=== PATIENT | female | born 1995 | race Caucasian/White ===

== ENCOUNTER 2021-12-07 22:51 | Emergency (ER) | payer OTHER, SELFPAY ==
[2021-12-08] MEDS ORDERED: LIDOCAINE 1% W/EPI 1:100,000 MDV 20 ML VIAL ONE (00:34)
[2021-12-08] MEDS ORDERED: TETANUS & DIPHTHERIA TOX,ADULT 0.5 ML VIAL ONE (00:35)
--- NOTE | 2021-12-08 02:19 | ER ---
Nurse's Notes [facility] Name: Celsa Villavicencio Age: 26 yrs Sex: Female : 1995 Arrival Date: 12/07/2021 Time: 22:53 Bed 3 Private MD: Diagnosis: Arm Laceration Left/ Open wound of forearm Presentation: 12/07 22:53 Chief complaint: Patient states: Multiple lacerations to left wrist and forearm. Pt ld1 reporting "sexual pleasure" activity when lacerations occurred at 2200 today. Coronavirus screen: At this time, the client does not indicate any symptoms associated with coronavirus-19. Ebola Screen: No symptoms or risks identified at this time. Complicating Factors: There are no complicating factors for this patient. Initial Sepsis Screen: Does the patient meet any 2 criteria? No. Patient's initial sepsis screen is negative. Does the patient have a suspected source of infection? No. Patient's initial sepsis screen is negative. Risk Assessment: Do you want to hurt yourself or someone else? Patient reports no desire to harm self or others. Onset of symptoms was December 07, 2021. 22:53 Method Of Arrival: Ambulatory ld1 22:53 Acuity: JANES 3 ld1 Triage Assessment: 22:56 General: Appears in no apparent distress. comfortable, Behavior is calm, cooperative, ld1 appropriate for age. Pain: Denies pain. EENT: No signs and/or symptoms were reported regarding the EENT system. Neuro: Level of Consciousness is awake, alert, obeys commands, Oriented to person, place, time, situation. Cardiovascular: Capillary refill < 3 seconds Patient's skin is warm and dry. Respiratory: Airway is patent Respiratory effort is even, unlabored. GI: Abdomen is flat, non-distended. : No signs and/or symptoms were reported regarding the genitourinary system. Injury Description: Laceration sustained to left arm. 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 - Social history:: Smoking status: Patient reports the use of cigarette tobacco products, smokes two packs cigarettes per day. Patient uses alcohol, on a daily basis. Screenin/27 02:05 Abuse screen: Denies threats or abuse. Nutritional screening: No deficits noted. vc1 Tuberculosis screening: No symptoms or risk factors identified. Fall Risk None identified. Assessment: 00:00 General: Appears in no apparent distress. comfortable, Behavior is calm, cooperative, vc1 appropriate for age. Pain: Complains of pain in left arm. Neuro: No deficits noted. Cardiovascular: No deficits noted. Musculoskeletal: No deficits noted. Range of motion: intact in all extremities. 00:00 Injury Description: Laceration sustained to left arm is clean, 0.5 to 2.5 cm long, vc1 bleeding moderately, multiple laceration down left arm. 01:00 Reassessment: No changes from previously documented assessment. Patient and/or family vc1 updated on plan of care and expected duration. Pain level reassessed. 02:00 Reassessment: No changes from previously documented assessment. Patient and/or family vc1 updated on plan of care and expected duration. Pain level reassessed. Vital Signs: 12/07 22:53 BP 138 / 114; Pulse 114; Resp 18; Temp 98.9; Pulse Ox 99% on R/A; Weight 71.67 kg; ld1 Height 5 ft. 3 in. (160.02 cm); Pain 0/10; 12/08 02:00 BP 126 / 96; Pulse 95; Resp 17; Pulse Ox 100% ; vc1 12/07 22:53 Body Mass Index 27.99 (71.67 kg, 160.02 cm) ld1 ED Course: 12/07 22:53 Patient arrived in ED. kz 22:56 Triage completed. ld1 22:56 Arm band placed on right wrist. ld1 23:47 Miriam Nielsen RN is Primary Nurse. vc1 23:56 Brian Rosado MD is Attending Physician. mh7 12/08 00:00 Patient has correct armband on for positive identification. Bed in low position. vc1 00:00 Wound care: to laceration located on left arm was cleaned with Betadine, Patient vc1 tolerated well. 02:05 Assist provider with laceration repair on left arm that was 2.5 cm. or less using vc1 sutures. Set up tray. Performed by Brian Rosado MD Dressed with Non stick pad with yuriy wrap Patient tolerated well. 02:36 Patient did not have IV access during this emergency room visit. 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 Exp: vc1 09/23/2023. Lot #: [id number]. } Route: IM; Site: left deltoid; 02:33 Follow up: Response: No adverse reaction vc1 01:47 Drug: Lidocaine-Epinephrine -1%: (1:100,000) 10 ml Volume: 20 ml; Route: Infiltration; vc1 02:32 Drug: KeFLEX (cephalexin) 500 mg Route: PO; vc1 02:33 Follow up: Response: Medication administered at discharge. vc1 Medication: 02:08 Vaccine Information Statement (VIS) provided today. Questions and/or concerns vc1 addressed. VIS edition date: December 08, 2021. Outcome: 02:18 Discharge ordered by . [facility] 02:36 Discharged to home ambulatory, with significant other. vc1 02:36 Condition: good 02:36 Discharge instructions given to patient, significant other, Instructed on discharge instructions, follow up and referral plans. wound care, Demonstrated understanding of instructions, follow-up care, medications, wound care, Prescriptions given X 1. 02:36 Patient left the ED. vc1 Signatures: Brian Rosado MD MD [facility] Prabha Licona RN RN 1 Miriam Nielsen RN RN 1 Allyson Robbins
--- NOTE | 2021-12-08 02:20 | EDPHYS ---
Physician Documentation [facility] Name: Celsa Villavicencio Age: 26 yrs Sex: Female : 1995 Arrival Date: 12/07/2021 Time: 22:53 Bed 3 Private MD: ED Physician Brian Rosado HPI: 12/08 00:26 This 26 yrs old Female presents to ER via Ambulatory with complaints of Laceration To mh7 Arm. 00:26 The patient has a laceration related to: sexual activity occurred at home, and there mh7 are no complicating factors. The injury was self inflicted. The laceration(s) is(are) located on the left forearm. Onset: The symptoms/episode began/occurred 2 hour(s) ago. Associated signs and symptoms: Pertinent negatives: deformity, dizziness, heavy bleeding, loss of consciousness, numbness distal to injury, suspected foreign body. 00:26 Patient's significant other in ED and verifies the history given by the patient.. 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 - Social history:: Smoking status: Patient reports the use of cigarette tobacco products, smokes two packs cigarettes per day. Patient uses alcohol, on a daily basis. ROS: 12/08 00:26 Constitutional: Negative for fever, chills, and weight loss, Eyes: Negative for injury, mh7 pain, redness, and discharge, ENT: Negative for injury, pain, and discharge, Neck: Negative for injury, pain, and swelling, Cardiovascular: Negative for chest pain, palpitations, and edema, Respiratory: Negative for shortness of breath, cough, wheezing, and pleuritic chest pain, Abdomen/GI: Negative for abdominal pain, nausea, vomiting, diarrhea, and constipation, Back: Negative for injury and pain, : Negative for injury, bleeding, discharge, and swelling, Neuro: Negative for headache, weakness, numbness, tingling, and seizure, Psych: Negative for depression, anxiety, suicide ideation, homicidal ideation, and hallucinations, Allergy/Immunology: Negative for hives, rash, and allergies, Endocrine: Negative for neck swelling, polydipsia, polyuria, polyphagia, and marked weight changes, Hematologic/Lymphatic: Negative for swollen nodes, abnormal bleeding, and unusual bruising. Exam: 00:26 Constitutional: This is a well developed, well nourished patient who is awake, alert, mh7 and in no acute distress. Head/Face: Normocephalic, atraumatic. Neuro: Awake and alert, GCS 15, oriented to person, place, time, and situation. Cranial nerves II-XII grossly intact. Motor strength 5/5 in all extremities. Sensory grossly intact. Cerebellar exam normal. Normal gait. Psych: Awake, alert, with orientation to person, place and time. Behavior, mood, and affect are within normal limits. 00:26 Eyes: Pupils equal round and reactive to light, extra-ocular motions intact. Lids and mh7 lashes normal. Conjunctiva and sclera are non-icteric and not injected. Cornea within normal limits. Periorbital areas with no swelling, redness, or edema. Neck: Trachea midline, no thyromegaly or masses palpated, and no cervical lymphadenopathy. Supple, full range of motion without nuchal rigidity, or vertebral point tenderness. No Meningismus. Chest/axilla: Normal chest wall appearance and motion. Nontender with no deformity. No lesions are appreciated. Cardiovascular: Regular rate and rhythm with a normal S1 and S2. No gallops, murmurs, or rubs. Normal PMI, no JVD. No pulse deficits. Respiratory: Lungs have equal breath sounds bilaterally, clear to auscultation and percussion. No rales, rhonchi or wheezes noted. No increased work of breathing, no retractions or nasal flaring. Abdomen/GI: Soft, non-tender, with normal bowel sounds. No distension or tympany. No guarding or rebound. No evidence of tenderness throughout. Back: No spinal tenderness. No costovertebral tenderness. Full range of motion. 00:26 Musculoskeletal/extremity: Extremities: noted in the left forearm: abrasion, mh7 laceration, ROM: intact in all extremities, Circulation is intact in all extremities. Sensation intact. Compartment Syndrome exam of affected extremity: is normal. no pain, no numbness, no tingling, no sensation deficit, no palor, no weak pulses, Joints: All joints appear normal with full range of motion. Tendon exam: specific tendon testing normal through active and passive range of motion 00:26 Skin: injury, abrasion(s), moderate sized abrasion noted, of the left forearm, laceration(s), the wound is approximately 2 cm(s), with a depth of 0.5 cm(s), of the left forearm, the second wound is approximately 2.5 cm(s), with a depth of 0.5 cm(s), of the left forearm, the third wound is approximately 2.5 cm(s), with a depth of 0.2 cm(s), of the left forearm, the fourth wound is approximately 1 cm(s), with a depth of 0.2 cm(s), of the left forearm, that can be described as clean, no foreign body, irregular, with mild bleeding. Vital Signs: 12/07 22:53 BP 138 / 114; Pulse 114; Resp 18; Temp 98.9; Pulse Ox 99% on R/A; Weight 71.67 kg; ld1 Height 5 ft. 3 in. (160.02 cm); Pain 0/10; 12/08 02:00 BP 126 / 96; Pulse 95; Resp 17; Pulse Ox 100% ; vc1 12/07 22:53 Body Mass Index 27.99 (71.67 kg, 160.02 cm) ld1 Laceration: 00:26 Wound Repair of 2.5cm ( 1.0in ) subcutaneous laceration to left forearm. Irregularly mh7 shaped.. Distal neuro/vascular/tendon intact. Anesthesia: Local anesthetic administered with 1 mls of 1% lidocaine w/ Epi. Wound prep: Extensive cleansing with betadine by nurse, Wound irrigation with saline by me, Wound explored extensively, Copious irrigation. Skin closed with 5 4-0 Prolene using simple sutures and sterile technique. Dressed with Bacitracin. Patient tolerated well. 00:26 Wound Repair of 2.0cm ( 0.8in ) subcutaneous laceration to left forearm. Irregularly mh7 shaped.. Distal neuro/vascular/tendon intact. Anesthesia: Local anesthetic administered with 1 mls of 1% lidocaine. Wound prep: Extensive cleansing with betadine by nurse, Wound irrigation with saline by me, Wound explored extensively, Copious irrigation. Skin closed with 4 4-0 Prolene using simple sutures and sterile technique. Dressed with Bacitracin, non-adherent dressing. Patient tolerated well. 00:26 Wound Repair of 2.5cm ( 1.0in ) subcutaneous laceration to left forearm. Irregularly mh7 shaped.. Distal neuro/vascular/tendon intact. Anesthesia: Local anesthetic administered with 1 mls of 1% lidocaine w/ Epi. Wound prep: Extensive cleansing with betadine by nurse, Wound irrigation with saline by me, Wound explored extensively, Copious irrigation. Skin closed with 5 4-0 Prolene using simple sutures and sterile technique. Dressed with Bacitracin, non-adherent dressing. Patient tolerated well. 00:26 Wound Repair of 1cm ( 0.4in ) subcutaneous laceration to left forearm. Irregularly mh7 shaped.. Distal neuro/vascular/tendon intact. Anesthesia: Local anesthetic administered with 1 mls of 1% lidocaine. Wound prep: Extensive cleansing with betadine by nurse, Wound irrigation with saline by me, Wound explored extensively, Copious irrigation. Skin closed with 1 4-0 Prolene using simple sutures and sterile technique. Dressed with Bacitracin, non-adherent dressing. Patient tolerated well. MDM: 02:17 Differential diagnosis: superficial laceration, tendon injury, vascular injury. Data [facility] reviewed: vital signs, nurses notes. Data interpreted: Pulse oximetry: on room air is 99 %. Interpretation: normal. Counseling: I had a detailed discussion with the patient and/or guardian regarding: the historical points, exam findings, and any diagnostic results supporting the discharge/admit diagnosis, the presence of at least one elevated blood pressure reading (>120/80) during this emergency department visit, the need for outpatient follow up, to return to the emergency department if symptoms worsen or persist or if there are any questions or concerns that arise at home. Response to treatment: the patient's symptoms have markedly improved after treatment. 02:18 Patient medically screened. 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 Exp: vc1 09/23/2023. Lot #: [id number]. } Route: IM; Site: left deltoid; 02:33 Follow up: Response: No adverse reaction vc1 01:47 Drug: Lidocaine-Epinephrine -1%: (1:100,000) 10 ml Volume: 20 ml; Route: Infiltration; vc1 02:32 Drug: KeFLEX (cephalexin) 500 mg Route: PO; vc1 02:33 Follow up: Response: Medication administered at discharge. vc1 Disposition Summary: 12/08/21 02:18 Discharge Ordered Location: Home [facility] Problem: new [facility] Symptoms: have improved [facility] Condition: Stable [facility] Diagnosis - Arm Laceration Left/ Open wound of forearm [facility] Followup: [facility] - With: Private Physician - When: 1 - 2 days - Reason: Wound Recheck, Worsening of condition, Recheck today's complaints, Continuance of care, Re-evaluation by your physician Discharge Instructions: - Discharge Summary Sheet [facility] - Laceration Care, Adult, [id number] [facility] - Sutures, Presley, or Adhesive Wound Closure, [id number] [facility] Forms: - Medication Reconciliation Form [facility] - Thank You Letter [facility] - Antibiotic Education [facility] - Prescription Opioid Use [facility] Prescriptions: - Cephalexin 500 mg Oral Capsule - take 1 capsule by ORAL route every 8 hours for 7 days; 21 capsule; Refills: 0, 7 Product Selection Permitted Signatures: Brian Rosado MD MD [facility] Prabha Licona RN RN ld1 Miriam Nielsen RN RN vc1
[2021-12-08] MEDS ORDERED: CEPHALEXIN 250 MG CAP ONE (02:35)
[2021-12-08 02:42] VITALS: TEMP 98.9
[2021-12-08 02:44] VITALS: BP 126/96; O2SAT 100
== END 2021-12-08 02:36 | disposition home or self-care (01) ==
LOC: ER 22:51
PROC: 0JQH0ZZ Repair Left Lower Arm Subcutaneous Tissue and Fascia, Open Approach (ICD-10-PCS; principal; 2021-12-08)
DX: S51.812A Laceration without foreign body of left forearm, initial encounter (principal); I10 Essential (primary) hypertension; F17.210 Nicotine dependence, cigarettes, uncomplicated; Z23 Encounter for immunization
CPT/HCPCS: 90471; 90714; 99284

== ENCOUNTER 2021-12-14 13:14 | Emergency (ER) | payer OTHER ==
--- NOTE | 2021-12-14 13:55 | EDPHYS ---
Physician Documentation [facility] Name: Celsa Villavicencio Age: 26 yrs Sex: Female : 1995 Arrival Date: 12/14/2021 Time: 13:14 Bed 9 Private MD: ED Physician Wild Evangelista HPI: 12/14 14:01 This 26 yrs old Female presents to ER via Ambulatory with complaints of Suture Removal. jh7 14:01 The patient has sutures on the left arm. Sutures/anel progress: The patient has no jh7 c/o's. The wound is well-healing with no redness, swelling, discharge, or dehiscence reported. 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 - Social history:: Smoking status: . ROS: 14:01 Skin: Positive for laceration(s), 3 healing lacerations on the left ventral forearm. jh7 14:01 Constitutional: Negative for fever, chills, and weight loss, Cardiovascular: Negative jh7 for chest pain, palpitations, and edema, Respiratory: Negative for shortness of breath, cough, wheezing, and pleuritic chest pain, Back: Negative for injury and pain, MS/Extremity: Negative for injury and deformity. 14:01 All other systems are negative. jh7 Exam: 14:01 Constitutional: This is a well developed, well nourished patient who is awake, alert, jh7 and in no acute distress. ENT: Nares patent. No nasal discharge, no septal abnormalities noted. Tympanic membranes are normal and external auditory canals are clear. Oropharynx with no redness, swelling, or masses, exudates, or evidence of obstruction, uvula midline. Mucous membranes moist. Cardiovascular: Regular rate and rhythm with a normal S1 and S2. No gallops, murmurs, or rubs. Normal PMI, no JVD. No pulse deficits. Respiratory: Lungs have equal breath sounds bilaterally, clear to auscultation and percussion. No rales, rhonchi or wheezes noted. No increased work of breathing, no retractions or nasal flaring. Back: No spinal tenderness. No costovertebral tenderness. Full range of motion. Neuro: Awake and alert, GCS 15, oriented to person, place, time, and situation. Motor strength 5/5 in all extremities. Sensory grossly intact. Normal gait. 14:01 Skin: Healing lacerations with intact sutures on left ventral forearm. Vital Signs: 13:39 Pulse 83; Resp 17; Temp 99(O); Pulse Ox 99% on R/A; tw2 Procedures: 14:01 Suture/Staple removal: Removed from left arm, site appears well healed, dressed with [facility] band aid, Patient tolerated well. MDM: 13:38 Patient medically screened. [facility] 14:01 Data reviewed: vital signs, nurses notes. Data interpreted: Pulse oximetry: is 99 %. [facility] Interpretation: normal. Counseling: I had a detailed discussion with the patient and/or guardian regarding: to return to the emergency department if symptoms worsen or persist or if there are any questions or concerns that arise at home. Administered Medications: No medications were administered Disposition Summary: 12/14/21 13:54 Discharge Ordered Location: Home [facility] Problem: new [facility] Symptoms: have improved jh7 Condition: Stable jh7 Diagnosis - Encounter for removal of sutures [facility] Followup: [facility] - With: Private Physician - When: 2 - 3 days - Reason: Recheck today's complaints Discharge Instructions: - Discharge Summary Sheet [facility] - Suture Removal, Care After jh7 Forms: - Medication Reconciliation Form [facility] - Thank You Letter [facility] Signatures: Sayra Espinal RN RN tw2 Adele Harper FNP DIRECTOR GLOBAL SALES [facility]
--- NOTE | 2021-12-14 13:55 | ER ---
Nurse's Notes [facility] Name: Celsa Villavicencio Age: 26 yrs Sex: Female : 1995 Arrival Date: 12/14/2021 Time: 13:14 Bed 9 Private MD: Diagnosis: Encounter for removal of sutures Presentation: 12/14 13:39 Chief complaint: Patient states: i just need to get my sutures out. i think its been 6 tw2 days. on my LEFT arm. Coronavirus screen: At this time, the client does not indicate any symptoms associated with coronavirus-19. Ebola Screen: Patient denies travel to an Ebola-affected area in the 21 days before illness onset. Initial Sepsis Screen: Does the patient meet any 2 criteria? No. Patient's initial sepsis screen is negative. Does the patient have a suspected source of infection? No. Patient's initial sepsis screen is negative. Risk Assessment: Do you want to hurt yourself or someone else? Patient reports no desire to harm self or others. Onset of symptoms was December 14, 2021. 13:39 Method Of Arrival: Ambulatory tw2 13:39 Acuity: JANES 4 tw2 Triage Assessment: 13:40 General: Appears in no apparent distress. Behavior is calm, cooperative, appropriate tw2 for age. Pain: Denies pain. 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 - Social history:: Smoking status: . Screenin:41 Abuse screen: Denies threats or abuse. Nutritional screening: No deficits noted. tw2 Tuberculosis screening: No symptoms or risk factors identified. Fall Risk None identified. Vital Signs: 13:39 Pulse 83; Resp 17; Temp 99(O); Pulse Ox 99% on R/A; tw2 ED Course: 13:14 Patient arrived in ED. am2 13:18 [facility] Harper [facility] 13:18 Wild Evangelista MD is Attending Physician. [facility] 13:36 Bed in low position. Call light in reach. tw2 13:40 Triage completed. tw2 13:41 Arm band placed on. tw2 14:03 Shania Brunner, RN is Primary Nurse. ap3 14:03 No provider procedures requiring assistance completed. Patient did not have IV access ap3 during this emergency room visit. Administered Medications: No medications were administered Medication: 14:04 VIS not applicable for this client. ap3 Outcome: 13:54 Discharge ordered by . jh7 14:04 Discharged to home ambulatory. ap3 14:04 Condition: good 14:04 Discharge instructions given to patient, Instructed on discharge instructions, follow up and referral plans. wound care, Demonstrated understanding of instructions, follow-up care, wound care. 14:04 Patient left the ED. ap3 Signatures: Sayra Espinal RN RN tw2 Shania Sheth [facility] Shania Brunner, RN RN ap3 Adele Harper, SILK SCREEN PRINTER HELPER SILK SCREEN PRINTER HELPER [facility]
[2021-12-14 14:23] VITALS: TEMP 99; O2SAT 99
== END 2021-12-14 14:04 | disposition home or self-care (01) ==
LOC: ER 13:14
DX: Z48.02 Encounter for removal of sutures (principal)
CPT/HCPCS: 99281